=== PATIENT | female | born 1950 | race Caucasian/White ===

== ENCOUNTER 2018-08-26 14:49 | Inpatient (IN) | payer MEDICARE, OTHER ==
[~2018-08-26] VITALS: Ht 172.7 cm; Wt 132.6 kg
--- NOTE | 2018-08-26 15:08 | NUR ---
PT ARRIVES TO ED WITH GENERALIZED WEAKNESS, PT HAD A WINESSED FALL. PT REPORTS SHE IS STRUGGLING TO PERFORM ADLS AT HOME. EMS WAS CALLED AND PT WAS TRANSPORTED TO OUR FACILITY. PT ON ARRIVAL IS VERY TIRED AND FEELS LIKE SHE IS SICK. PT HAS MODERATE CELLULITIS TO BOTH LEGS AND MILD SWELLING. PT CONNECTED TO ALL MONITORS AND CALL LIGHT IN REACH.
--- NOTE | 2018-08-26 15:09 | NUR ---
Recieved report from AMOS Rooney.
[2018-08-26] MEDS ORDERED: SODIUM CHLORIDE FLUSH 10ML SYR IVF ONE (15:30)
[2018-08-26 16:00] LABS: BASOPHILS # (AUTO) 0.02 x10^3/uL (0-0.1); BASOPHILS % (AUTO) 0 % (0-1); EOSINOPHILS # (AUTO) 0.28 x10^3/uL (0-0.4); EOSINOPHILS % (AUTO) 4 % (1-7); LYMPHOCYTES # (AUTO) 0.67 x10^3/uL (1-3.4); LYMPHOCYTES % (AUTO) 9 % (22-44); MD NO; MEAN CORPUSCULAR HEMOGLOBIN 29.3 pg (27.0-34.8); MEAN CORPUSCULAR HGB CONC 31.2 g/dL (32.4-35.8); MONOCYTES # (AUTO) 1.31 x10^3/uL (0.2-0.8); MONOCYTES % (AUTO) 18 % (2-9); NEUTROPHILS # (AUTO) 5.03 x10^3/uL (1.8-6.8); NEUTROPHILS % (AUTO) 69 % (42-75); PLATELET COUNT 206 x10^3/uL (130-400); RED BLOOD COUNT 3.78 x10^6/uL (3.82-5.3); RED CELL DISTRIBUTION WIDTH 18.1 % (9.6-15.2)
[2018-08-26 16:05] LABS: INTERNATIONAL NORMALIZED RATIO 1.19 (0.93-1.1); PROTHROMBIN TIME 12.5 Seconds (9.6-11.5)
[2018-08-26 16:09] LABS: ALANINE AMINOTRANSFERASE 18 U/L (12-78); ALBUMIN 3.2 g/dL (3.4-5.0); ANION GAP 9 mmol/L (5-15); CHLORIDE 108 mmol/L (98-107)
[2018-08-26 16:20] LABS: ALKALINE PHOSPHATASE 222 U/L (45-117)
[2018-08-26] MEDS ORDERED: SODIUM CHLORIDE 0.9% 1,000 ML IV SCH (16:57)
[2018-08-26] MEDS ORDERED: VANCOMYCIN PER PHARMACY MC PRN (17:00)
[2018-08-26] MEDS ORDERED: ONDANSETRON 2MG/ML, 2ML IVPush PRN (17:00)
[2018-08-26] MEDS ORDERED: PLEASE ENTER ALLERGIES MC SCH (17:00)
[2018-08-26] MEDS ORDERED: ONDANSETRON ODT 4 MG PO PRN (17:00)
[2018-08-26] MEDS ORDERED: BACLOFEN 10 MG TABLET PO PRN (17:00)
[2018-08-26] MEDS ORDERED: PHARMACY MAY ADJ FOR RENAL FX MC PRN (17:00)
[2018-08-26] MEDS ORDERED: AMPICILLIN/SULBACTAM 3 GM in SODIUM CHLORIDE 0.9% 100 ML IV ONE (17:00)
--- NOTE | 2018-08-26 17:10 | NUR ---
Pt transported to [facility] on [facility]. Pt has PIV medication infusing per [facility].
[2018-08-26] MEDS: INSULIN LISPRO 100 UNITS/ML, PEN SQ-INSULIN SCH ×2 (17:30→21:00)
--- NOTE | 2018-08-26 17:33 | NUR ---
Provided report to AMOS Anaya. All questions answered. Pt to transfer to 491-1 from ED.
--- NOTE | 2018-08-26 17:55 | NUR ---
Unable to obtain home meds due to pt's acute medical process. Pt unable to provide information at this time.
[2018-08-26 18:12] LABS: HEMOGLOBIN A1C 7.6 % (4.2-6.3)
[2018-08-26 18:25] LABS: MICROSCOPIC INDICATED
[2018-08-26] MEDS ORDERED: PHARMACOKINETIC CONSULTATION MC ONE (18:30)
[2018-08-26] MEDS ORDERED: PHARMACOKINETIC MONITORING MC PRN (18:30)
[2018-08-26 18:33] LABS: CULTURE INDICATED? NO
[2018-08-26 18:33] LABS: AMPHETAMINE SCREEN, URINE Negative (Negative); BARBITURATE SCREEN, URINE Negative (Negative); BENZODIAZEPINE SCREEN, URINE Negative (Negative); CANNABINOID SCREEN, URINE Negative (Negative); COCAINE SCREEN, URINE Negative (Negative); METHADONE SCREEN, URINE Negative (Negative); OPIATE SCREEN, URINE Negative (Negative)
[2018-08-26 20:00] VITALS: BP 126/73
[2018-08-26] MEDS: VANCOMYCIN 2,000 MG in SODIUM CHLORIDE 0.9% 500 ML IV SCH (21:28)
[2018-08-26] MEDS: ENOXAPARIN 40 MG/0.4 ML SQ SCH (21:29)
[2018-08-26] MEDS: AMPICILLIN/SULBACTAM 3 GM in SODIUM CHLORIDE 0.9% 100 ML IV SCH (23:40)
[2018-08-27 02:00] VITALS: BP 108/70
[2018-08-27] MEDS: AMPICILLIN/SULBACTAM 3 GM in SODIUM CHLORIDE 0.9% 100 ML IV SCH ×4 (05:54→23:23)
[2018-08-27 06:00] LABS: MEAN CORPUSCULAR HEMOGLOBIN 30.4 pg (27.0-34.8); MEAN CORPUSCULAR HGB CONC 32.2 g/dL (32.4-35.8); MEAN CORPUSCULAR VOLUME 94.4 fL (80-100); PLATELET COUNT 204 x10^3/uL (130-400); RED BLOOD COUNT 3.65 x10^6/uL (3.82-5.3); RED CELL DISTRIBUTION WIDTH 19.1 % (9.6-15.2)
[2018-08-27 06:06] LABS: ALANINE AMINOTRANSFERASE 18 U/L (12-78); ALBUMIN 3.1 g/dL (3.4-5.0); ANION GAP 6 mmol/L (5-15); CALCIUM 8.8 mg/dL (8.5-10.1); CHLORIDE 110 mmol/L (98-107); CHOLESTEROL, TOTAL 109 mg/dL (140-239); CREATININE 1.52 mg/dL (0.55-1.02)
[2018-08-27 06:08] LABS: ALKALINE PHOSPHATASE 211 U/L (45-117); BILIRUBIN,TOTAL 0.7 mg/dL (0.2-1.0); CHOL/HDL RATIO 3.1; HDL CHOL % 32 % (28-40); HDL CHOLESTEROL (DIRECT) 35 mg/dL (40-60); LDL CHOLESTEROL,CALCULATED 60 mg/dL (54-169); LDL/HDL RATIO 1.7 (0.5-3.0); TOTAL PROTEIN 7.1 g/dL (6.4-8.2); TRIGLYCERIDES 68 mg/dL (50-200); VLDL CHOLESTEROL 14 mg/dL (0-25)
[2018-08-27 06:21] LABS: MD YES
[2018-08-27 06:23] LABS: BAND#(MANUAL) 0.07 x10^3/uL; BANDS%(MANUAL) 1 % (0-7); EOS#(MANUAL) 0.29 x10^3/uL (0.0-0.4); EOS% (MANUAL) 4 % (1-7); LYMPHS% (MANUAL) 11 % (22-44); MONOS#(MANUAL) 1.53 x10^3/uL (0.3-2.7); MONOS% (MANUAL) 21 % (2-9); SEGS% (MANUAL) 63 % (42-75)
[2018-08-27 06:24] LABS: <PLATELET ESTIMATE> ADEQUATE; <PLT MORPHOLOGY> NORMAL PLT MORPH; <RBC MORPHOLOGY> NORMAL
[2018-08-27] MEDS: INSULIN LISPRO 100 UNITS/ML, PEN SQ-INSULIN SCH ×4 (07:00→20:37)
[2018-08-27 07:04] VITALS: BP 113/67
[2018-08-27] MEDS ORDERED: FURO40TA6 PO (08:51)
[2018-08-27] MEDS ORDERED: PANT40TA5 PO (08:51)
[2018-08-27] MEDS ORDERED: POTA20TA91 PO (08:51)
[2018-08-27] MEDS ORDERED: INSU100I18 SQ-INSULIN (08:51)
[2018-08-27] MEDS ORDERED: INSU100I13 SQ-INSULIN (08:51)
[2018-08-27] MEDS ORDERED: METO-290 PO (08:51)
[2018-08-27] MEDS ORDERED: ALLO100T30 PO (08:51)
[2018-08-27] MEDS ORDERED: HYDR10TA4 PO (08:51)
[2018-08-27] MEDS ORDERED: ALBU0.63 NEB (08:51)
[2018-08-27] MEDS ORDERED: BUDE10.2 HHN (08:51)
[2018-08-27] MEDS ORDERED: DULO60CA55 PO (08:51)
[2018-08-27] MEDS ORDERED: ATOR-2 PO (08:51)
[2018-08-27] MEDS ORDERED: FUROSEMIDE 40 MG/4 ML IV ONE (12:00)
[2018-08-27 12:10] VITALS: BP 95/61
[2018-08-27 15:22] LABS: CALCIUM 8.4 mg/dL (8.5-10.1); CHLORIDE 108 mmol/L (98-107)
[2018-08-27 15:24] LABS: ANION GAP 7 mmol/L (5-15); CREATININE 1.65 mg/dL (0.55-1.02)
[2018-08-27] MEDS: FUROSEMIDE 40 MG/4 ML IV SCH (17:23)
[2018-08-27 20:00] VITALS: BP 143/71
[2018-08-27] MEDS: ENOXAPARIN 40 MG/0.4 ML SQ SCH (20:37)
[2018-08-27] MEDS: ATORVASTATIN 80 MG TABLET PO SCH (20:37)
[2018-08-27] MEDS: DULOXETINE 30 MG CAPSULE.DR PO SCH (20:38)
[2018-08-27] MEDS: BUDESONIDE 0.5 MG/2 ML INHA HHN SCH (20:55)
[2018-08-27] MEDS: ALBUTEROL SULFATE 2.5 MG/3 ML HHN SCH (20:55)
[2018-08-28 01:29] VITALS: BP 126/63
[2018-08-28] MEDS: ALBUTEROL SULFATE 2.5 MG/3 ML HHN SCH ×4 (02:40→19:40)
[2018-08-28 05:12] LABS: BASOPHILS # (AUTO) 0.04 x10^3/uL (0-0.1); BASOPHILS % (AUTO) 1 % (0-1); EOSINOPHILS # (AUTO) 0.27 x10^3/uL (0-0.4); EOSINOPHILS % (AUTO) 4 % (1-7); LYMPHOCYTES # (AUTO) 0.87 x10^3/uL (1-3.4); LYMPHOCYTES % (AUTO) 12 % (22-44); MD NO; MEAN CORPUSCULAR HEMOGLOBIN 29.9 pg (27.0-34.8); MEAN CORPUSCULAR HGB CONC 31.4 g/dL (32.4-35.8); MEAN CORPUSCULAR VOLUME 95.3 fL (80-100); MEAN PLATELET VOLUME 8.2 fL (7.4-10.4); MONOCYTES # (AUTO) 1.41 x10^3/uL (0.2-0.8); MONOCYTES % (AUTO) 19 % (2-9); NEUTROPHILS # (AUTO) 4.85 x10^3/uL (1.8-6.8); NEUTROPHILS % (AUTO) 65 % (42-75); PLATELET COUNT 191 x10^3/uL (130-400); RED BLOOD COUNT 3.71 x10^6/uL (3.82-5.3); RED CELL DISTRIBUTION WIDTH 18.5 % (9.6-15.2)
[2018-08-28 05:26] LABS: ANION GAP 5 mmol/L (5-15); CALCIUM 8.6 mg/dL (8.5-10.1); CHLORIDE 109 mmol/L (98-107)
[2018-08-28] MEDS: AMPICILLIN/SULBACTAM 3 GM in SODIUM CHLORIDE 0.9% 100 ML IV SCH ×4 (05:30→23:46)
[2018-08-28 07:23] VITALS: BP 129/68
[2018-08-28] MEDS: BUDESONIDE 0.5 MG/2 ML INHA HHN SCH ×2 (07:45→18:00)
[2018-08-28] MEDS: INSULIN LISPRO 100 UNITS/ML, PEN SQ-INSULIN SCH ×4 (08:20→21:30)
[2018-08-28] MEDS: DULOXETINE 30 MG CAPSULE.DR PO SCH ×2 (08:41→21:30)
[2018-08-28] MEDS: FUROSEMIDE 40 MG/4 ML IV SCH ×3 (08:41→23:44)
[2018-08-28] MEDS: PANTOPRAZOLE 40 MG IV IV SCH (08:41)
[2018-08-28] MEDS: METOPROLOL SUCCINATE 100 MG TAB.ER.24H PO SCH (08:41)
[2018-08-28] MEDS: VANCOMYCIN 2,000 MG in SODIUM CHLORIDE 0.9% 500 ML IV SCH (10:15)
[2018-08-28] MEDS: ALBUMIN HUMAN 25% 50 ML IV SCH ×3 (13:13→23:08)
[2018-08-28] MEDS ORDERED: PHARMACY MAY ADJ FOR RENAL FX MC PRN (14:30)
[2018-08-28 16:15] VITALS: BP 126/72
[2018-08-28] MEDS: METOLAZONE 5 MG TABLET PO SCH (16:27)
[2018-08-28 20:00] VITALS: BP 147/81
[2018-08-28] MEDS: ATORVASTATIN 80 MG TABLET PO SCH (21:30)
[2018-08-28] MEDS: ENOXAPARIN 40 MG/0.4 ML SQ SCH (21:30)
[2018-08-29 01:55] VITALS: BP 143/79
[2018-08-29] MEDS: ALBUTEROL SULFATE 2.5 MG/3 ML HHN SCH ×2 (02:00→08:00)
[2018-08-29] MEDS: AMPICILLIN/SULBACTAM 3 GM in SODIUM CHLORIDE 0.9% 100 ML IV SCH ×2 (05:39→11:54)
[2018-08-29] MEDS: BUDESONIDE 0.5 MG/2 ML INHA HHN SCH (06:00)
[2018-08-29 06:06] LABS: ALBUMIN 3.4 g/dL (3.4-5.0); ANION GAP 7 mmol/L (5-15); CALCIUM 8.9 mg/dL (8.5-10.1); CHLORIDE 110 mmol/L (98-107)
[2018-08-29 06:11] LABS: ALANINE AMINOTRANSFERASE 17 U/L (12-78); ALKALINE PHOSPHATASE 206 U/L (45-117); BILIRUBIN,TOTAL 1.1 mg/dL (0.2-1.0); CREATININE 1.73 mg/dL (0.55-1.02); TOTAL PROTEIN 7.1 g/dL (6.4-8.2)
[2018-08-29 06:20] LABS: MEAN CORPUSCULAR HEMOGLOBIN 30.7 pg (27.0-34.8); MEAN CORPUSCULAR HGB CONC 32.6 g/dL (32.4-35.8); MEAN CORPUSCULAR VOLUME 94.2 fL (80-100); PLATELET COUNT 195 x10^3/uL (130-400); RED BLOOD COUNT 3.44 x10^6/uL (3.82-5.3); RED CELL DISTRIBUTION WIDTH 18.6 % (9.6-15.2)
[2018-08-29 06:34] LABS: MD YES
[2018-08-29 06:36] LABS: BAND#(MANUAL) 0.07 x10^3/uL; BANDS%(MANUAL) 1 % (0-7); BASOS#(MANUAL) 0.07 x10^3/uL (0-0.1); BASOS% (MANUAL) 1 % (0-1); EOS#(MANUAL) 0.28 x10^3/uL (0.0-0.4); EOS% (MANUAL) 4 % (1-7); LYMPH#(MANUAL) 0.97 x10^3/uL (1-3.4); LYMPHS% (MANUAL) 14 % (22-44); MONOS#(MANUAL) 1.59 x10^3/uL (0.3-2.7); MONOS% (MANUAL) 23 % (2-9); SEG#(MANUAL) 3.93 x10^3/uL (1.8-6.8); SEGS% (MANUAL) 57 % (42-75)
[2018-08-29 06:38] LABS: <PLATELET ESTIMATE> ADEQUATE; <PLT MORPHOLOGY> NORMAL PLT MORPH; ANISOCYTOSIS 1+; OVALOCYTES 1+; POLYCHROMASIA 1+
[2018-08-29 06:39] LABS: ECHINOCYTES 1+
[2018-08-29] MEDS ORDERED: MIDAZOLAM 1 MG/ML, 2ML ONE (07:20)
[2018-08-29] MEDS ORDERED: FENTANYL PF 250 MCG/5ML ONE (07:20)
[2018-08-29] MEDS: INSULIN LISPRO 100 UNITS/ML, PEN SQ-INSULIN SCH ×4 (07:42→20:48)
[2018-08-29 08:02] VITALS: BP 140/83
[2018-08-29] MEDS: METOPROLOL SUCCINATE 100 MG TAB.ER.24H PO SCH (08:53)
[2018-08-29] MEDS: DULOXETINE 30 MG CAPSULE.DR PO SCH ×2 (08:53→20:48)
[2018-08-29] MEDS: METOLAZONE 5 MG TABLET PO SCH (08:53)
[2018-08-29] MEDS: ALBUMIN HUMAN 25% 50 ML IV SCH ×3 (08:53→20:47)
[2018-08-29] MEDS: PANTOPRAZOLE 40 MG IV IV SCH (08:53)
[2018-08-29] MEDS ORDERED: ALBUTEROL SULFATE 2.5 MG/3 ML HHN PRN (13:00)
[2018-08-29 13:24] VITALS: BP 143/79
[2018-08-29 16:47] VITALS: BP 146/79
[2018-08-29 20:00] VITALS: BP 119/70
[2018-08-29] MEDS: ATORVASTATIN 80 MG TABLET PO SCH (20:48)
[2018-08-29] MEDS: ENOXAPARIN 40 MG/0.4 ML SQ SCH (20:48)
[2018-08-29] MEDS: DOXYCYCLINE 100MG TABLET PO SCH (20:48)
[2018-08-29] MEDS: AMOXICILLIN/CLAV 875-125MG TABLET PO SCH (20:48)
[2018-08-30 02:00] VITALS: BP 143/52
[2018-08-30 04:58] LABS: ALANINE AMINOTRANSFERASE 18 U/L (12-78); ALBUMIN 3.3 g/dL (3.4-5.0); ANION GAP 6 mmol/L (5-15); CALCIUM 8.5 mg/dL (8.5-10.1); CHLORIDE 109 mmol/L (98-107); CREATININE 1.83 mg/dL (0.55-1.02)
[2018-08-30 05:01] LABS: ALKALINE PHOSPHATASE 201 U/L (45-117); BILIRUBIN,TOTAL 0.9 mg/dL (0.2-1.0); TOTAL PROTEIN 6.7 g/dL (6.4-8.2)
[2018-08-30] MEDS: ACETAMINOPHEN 325 MG TABLET PO PRN (06:17)
[2018-08-30 07:45] VITALS: BP 132/63
[2018-08-30] MEDS: INSULIN LISPRO 100 UNITS/ML, PEN SQ-INSULIN SCH ×4 (07:57→20:57)
[2018-08-30] MEDS: HEPARIN 5,000 UNITS/ML, 1ML SQ SCH ×2 (08:36→16:40)
[2018-08-30] MEDS: AMOXICILLIN/CLAV 875-125MG TABLET PO SCH ×2 (08:36→20:57)
[2018-08-30] MEDS: DOXYCYCLINE 100MG TABLET PO SCH ×2 (08:36→20:57)
[2018-08-30] MEDS: DULOXETINE 30 MG CAPSULE.DR PO SCH (08:37)
[2018-08-30] MEDS: METOLAZONE 5 MG TABLET PO SCH (08:37)
[2018-08-30] MEDS: METOPROLOL SUCCINATE 100 MG TAB.ER.24H PO SCH (08:37)
[2018-08-30] MEDS ORDERED: FUROSEMIDE 40 MG/4 ML IV SCH (09:00)
[2018-08-30] MEDS: ALBUMIN HUMAN 25% 50 ML IV SCH ×3 (09:36→20:56)
[2018-08-30 10:23] LABS: O2 FLOW 3 L/min
[2018-08-30 12:53] VITALS: BP 143/75
[2018-08-30] MEDS: methylPREDNISolone SOD SUCC 40 MG/ML IV SCH (18:46)
[2018-08-30 20:52] VITALS: BP 150/70
[2018-08-30] MEDS: ATORVASTATIN 80 MG TABLET PO SCH (20:57)
[2018-08-31] MEDS: methylPREDNISolone SOD SUCC 40 MG/ML IV SCH ×4 (00:45→17:39)
[2018-08-31] MEDS: HEPARIN 5,000 UNITS/ML, 1ML SQ SCH ×3 (00:45→17:40)
[2018-08-31 01:42] VITALS: BP 163/76
[2018-08-31 06:54] LABS: ALBUMIN 3.7 g/dL (3.4-5.0); ANION GAP 9 mmol/L (5-15); CALCIUM 9.1 mg/dL (8.5-10.1); CHLORIDE 109 mmol/L (98-107)
[2018-08-31 06:58] LABS: ALANINE AMINOTRANSFERASE 18 U/L (12-78); ALKALINE PHOSPHATASE 230 U/L (45-117); BILIRUBIN,TOTAL 0.8 mg/dL (0.2-1.0); CREATININE 1.66 mg/dL (0.55-1.02); TOTAL PROTEIN 7.4 g/dL (6.4-8.2)
[2018-08-31 07:51] VITALS: BP 173/86
[2018-08-31] MEDS: INSULIN LISPRO 100 UNITS/ML, PEN SQ-INSULIN SCH ×4 (07:54→21:40)
[2018-08-31] MEDS: METOLAZONE 5 MG TABLET PO SCH (07:55)
[2018-08-31] MEDS: AMOXICILLIN/CLAV 875-125MG TABLET PO SCH (07:55)
[2018-08-31] MEDS: DULOXETINE 30 MG CAPSULE.DR PO SCH (07:55)
[2018-08-31] MEDS: DOXYCYCLINE 100MG TABLET PO SCH (07:55)
[2018-08-31] MEDS: METOPROLOL SUCCINATE 100 MG TAB.ER.24H PO SCH (07:56)
[2018-08-31] MEDS ORDERED: MIDAZOLAM 1 MG/ML, 5ML ONE (08:57)
[2018-08-31] MEDS ORDERED: ROCURONIUM 10MG/ML,5ML ONE (08:57)
[2018-08-31] MEDS: ALBUMIN HUMAN 25% 50 ML IV SCH ×3 (09:33→22:54)
[2018-08-31] MEDS: ACETAMINOPHEN 325 MG TABLET PO PRN (12:21)
[2018-08-31] MEDS: FUROSEMIDE 40 MG/4 ML IV SCH (13:55)
[2018-08-31] MEDS ORDERED: HALOPERIDOL 5 MG/ML ONE (14:12)
[2018-08-31] MEDS ORDERED: HALOPERIDOL 5 MG/ML IV ONE (14:30)
[2018-08-31] MEDS ORDERED: AMPICILLIN/SULBACTAM 1,500 MG in SODIUM CHLORIDE 0.9% 50 ML IV SCH (14:30)
[2018-08-31 14:41] LABS: MEAN CORPUSCULAR HEMOGLOBIN 30.1 pg (27.0-34.8); MEAN CORPUSCULAR HGB CONC 31.9 g/dL (32.4-35.8); MEAN CORPUSCULAR VOLUME 94.5 fL (80-100); MEAN PLATELET VOLUME 8.8 fL (7.4-10.4); PLATELET COUNT 185 x10^3/uL (130-400); RED BLOOD COUNT 3.92 x10^6/uL (3.82-5.3); RED CELL DISTRIBUTION WIDTH 18.3 % (9.6-15.2)
[2018-08-31 14:44] LABS: ALANINE AMINOTRANSFERASE 21 U/L (12-78); ALBUMIN 3.9 g/dL (3.4-5.0); ANION GAP 13 mmol/L (5-15); CHLORIDE 107 mmol/L (98-107); CREATININE 1.97 mg/dL (0.55-1.02)
[2018-08-31 14:48] LABS: ALKALINE PHOSPHATASE 210 U/L (45-117); TOTAL PROTEIN 7.9 g/dL (6.4-8.2); TROPONIN I < 0.015 ng/mL (0.000-0.045)
[2018-08-31] MEDS ORDERED: PROPOFOL 100 ML IV ONE (14:56)
[2018-08-31 15:00] LABS: MD YES
[2018-08-31 15:09] LABS: <PLATELET ESTIMATE> ADEQUATE; <PLT MORPHOLOGY> NORMAL PLT MORPH; ANISOCYTOSIS 1+; BAND#(MANUAL) 0.07 x10^3/uL; BANDS%(MANUAL) 1 % (0-7); LYMPH#(MANUAL) 0.99 x10^3/uL (1-3.4); LYMPHS% (MANUAL) 15 % (22-44); MONOS% (MANUAL) 3 % (2-9); OVALOCYTES 1+; POLYCHROMASIA 1+; SEG#(MANUAL) 5.35 x10^3/uL (1.8-6.8); SEGS% (MANUAL) 81 % (42-75)
[2018-08-31] MEDS ORDERED: ROCURONIUM 10 MG/ML,10ML IVPush ONE (15:10)
[2018-08-31] MEDS ORDERED: MIDAZOLAM 1 MG/ML, 5ML IVPush ONE (15:10)
[2018-08-31] MEDS: PROPOFOL 100 ML IV PRN ×3 (15:20→22:20)
[2018-08-31] MEDS ORDERED: DEXTROSE 50%, 50ML SYRINGE IVPush PRN (15:30)
[2018-08-31] MEDS ORDERED: PHARMACY MAY ADJ FOR RENAL FX MC SCH (15:30)
[2018-08-31] MEDS ORDERED: LIDOCAINE-MPF 1%, 2ML ENDO PRN (15:30)
[2018-08-31] MEDS ORDERED: DEXTROSE 4 GM TAB.CHEW PO PRN (15:30)
[2018-08-31] MEDS: ALBUTEROL/IPRATROPIUM 2.5MG/0.5MG, 3 ML INLINE SCH ×3 (15:30→22:27)
[2018-08-31] MEDS ORDERED: GLUCAGON 1 MG IM PRN (15:30)
[2018-08-31] MEDS ORDERED: SENNA/DOCUSATE TABLET NG PRN (15:30)
[2018-08-31] MEDS ORDERED: SENNOSIDES 8.8 MG/5 ML ORAL SOL NG PRN (15:30)
[2018-08-31] MEDS ORDERED: LACTULOSE 20 GM/30 ML UDC NG PRN (15:30)
[2018-08-31] MEDS ORDERED: BISACODYL 10 MG SUPP PR PRN (15:30)
[2018-08-31] MEDS ORDERED: INSULIN LISPRO 100 UNITS/ML, PEN SQ-INSULIN SCH (16:00)
[2018-08-31 16:01] LABS: TRIGLYCERIDES 75 mg/dL (50-200)
[2018-08-31] MEDS: AMPICILLIN/SULBACTAM 1,500 MG in SODIUM CHLORIDE 0.9% 50 ML IV SCH (17:41)
[2018-08-31 21:11] LABS: TROPONIN I 0.038 ng/mL (0.000-0.045)
[2018-08-31] MEDS: ATORVASTATIN 80 MG TABLET NG SCH (21:39)
[2018-08-31] MEDS: DOXYCYCLINE 100 MG in DEXTROSE 5% 250 ML IV SCH (21:40)
[2018-08-31] MEDS: SODIUM CHLORIDE FLUSH 10ML SYR IVF SCH (21:40)
[2018-09-01] MEDS: methylPREDNISolone SOD SUCC 40 MG/ML IV SCH ×4 (00:11→19:00)
[2018-09-01] MEDS: HEPARIN 5,000 UNITS/ML, 1ML SQ SCH ×3 (00:11→16:28)
[2018-09-01] MEDS: FENTANYL PF 100 MCG/2ML IVPush PRN ×4 (00:46→20:11)
[2018-09-01] MEDS: PROPOFOL 100 ML IV PRN ×6 (01:34→23:13)
[2018-09-01] MEDS: ALBUTEROL/IPRATROPIUM 2.5MG/0.5MG, 3 ML INLINE SCH ×6 (01:48→22:22)
[2018-09-01] MEDS: INSULIN LISPRO 100 UNITS/ML, PEN SQ-INSULIN SCH ×4 (03:08→21:04)
[2018-09-01 03:48] LABS: BASOPHILS % (AUTO) 0 % (0-1); EOSINOPHILS % (AUTO) 0 % (1-7); LYMPHOCYTES # (AUTO) 0.51 x10^3/uL (1-3.4); LYMPHOCYTES % (AUTO) 8 % (22-44); MD NO; MEAN CORPUSCULAR HEMOGLOBIN 30.3 pg (27.0-34.8); MEAN CORPUSCULAR HGB CONC 32.7 g/dL (32.4-35.8); MEAN CORPUSCULAR VOLUME 92.5 fL (80-100); MEAN PLATELET VOLUME 9.1 fL (7.4-10.4); MONOCYTES # (AUTO) 0.61 x10^3/uL (0.2-0.8); MONOCYTES % (AUTO) 9 % (2-9); NEUTROPHILS # (AUTO) 5.57 x10^3/uL (1.8-6.8); NEUTROPHILS % (AUTO) 83 % (42-75); PLATELET COUNT 154 x10^3/uL (130-400); RED BLOOD COUNT 3.44 x10^6/uL (3.82-5.3)
[2018-09-01 03:52] LABS: ALBUMIN 3.8 g/dL (3.4-5.0); ANION GAP 10 mmol/L (5-15); CALCIUM 8.8 mg/dL (8.5-10.1); CHLORIDE 108 mmol/L (98-107)
[2018-09-01 03:55] LABS: ALANINE AMINOTRANSFERASE 18 U/L (12-78); ALKALINE PHOSPHATASE 177 U/L (45-117); BILIRUBIN,TOTAL 0.7 mg/dL (0.2-1.0); CREATININE 1.89 mg/dL (0.55-1.02); TOTAL PROTEIN 6.9 g/dL (6.4-8.2)
[2018-09-01] MEDS: AMPICILLIN/SULBACTAM 1,500 MG in SODIUM CHLORIDE 0.9% 50 ML IV SCH ×3 (04:17→22:30)
[2018-09-01 07:00] VITALS: BP 102/42
[2018-09-01] MEDS: ALBUMIN HUMAN 25% 50 ML IV SCH (08:09)
[2018-09-01] MEDS: SODIUM CHLORIDE FLUSH 10ML SYR IVF SCH ×2 (09:00→21:05)
[2018-09-01] MEDS: PANTOPRAZOLE 40 MG IV IV SCH (09:53)
[2018-09-01] MEDS: DULOXETINE 30 MG CAPSULE.DR PO SCH (09:53)
[2018-09-01] MEDS: FUROSEMIDE 40 MG/4 ML IV SCH (09:53)
[2018-09-01] MEDS: METOLAZONE 5 MG TABLET PO SCH (09:53)
[2018-09-01] MEDS: DOXYCYCLINE 100 MG in DEXTROSE 5% 250 ML IV SCH ×2 (09:53→21:04)
[2018-09-01] MEDS: INSULIN GLARGINE 100 UNITS/ML, PEN SQ-INSULIN SCH (12:38)
[2018-09-01] MEDS: METOPROLOL 1 MG/ML, 5ML IVPush PRN ×2 (21:04→21:27)
[2018-09-01] MEDS: ATORVASTATIN 80 MG TABLET NG SCH (21:04)
[2018-09-02] MEDS: methylPREDNISolone SOD SUCC 40 MG/ML IV SCH ×4 (00:05→18:04)
[2018-09-02] MEDS: HEPARIN 5,000 UNITS/ML, 1ML SQ SCH ×3 (00:05→15:43)
[2018-09-02] MEDS: FENTANYL PF 100 MCG/2ML IVPush PRN ×3 (01:05→17:17)
[2018-09-02] MEDS: ALBUTEROL/IPRATROPIUM 2.5MG/0.5MG, 3 ML INLINE SCH ×6 (01:49→21:54)
[2018-09-02] MEDS: PROPOFOL 100 ML IV PRN ×5 (03:19→21:28)
[2018-09-02] MEDS: INSULIN LISPRO 100 UNITS/ML, PEN SQ-INSULIN SCH ×4 (03:21→21:27)
[2018-09-02] MEDS: AMPICILLIN/SULBACTAM 1,500 MG in SODIUM CHLORIDE 0.9% 50 ML IV SCH (03:21)
[2018-09-02 04:00] VITALS: BP 133/51
[2018-09-02 04:38] LABS: BASOPHILS % (AUTO) 0 % (0-1); EOSINOPHILS % (AUTO) 0 % (1-7); LYMPHOCYTES # (AUTO) 0.41 x10^3/uL (1-3.4); LYMPHOCYTES % (AUTO) 6 % (22-44); MD NO; MEAN CORPUSCULAR HEMOGLOBIN 29.7 pg (27.0-34.8); MEAN CORPUSCULAR HGB CONC 31.9 g/dL (32.4-35.8); MEAN CORPUSCULAR VOLUME 93.3 fL (80-100); MEAN PLATELET VOLUME 9.4 fL (7.4-10.4); MONOCYTES # (AUTO) 0.41 x10^3/uL (0.2-0.8); MONOCYTES % (AUTO) 6 % (2-9); NEUTROPHILS # (AUTO) 6.34 x10^3/uL (1.8-6.8); NEUTROPHILS % (AUTO) 89 % (42-75); PLATELET COUNT 173 x10^3/uL (130-400); RED BLOOD COUNT 3.44 x10^6/uL (3.82-5.3); RED CELL DISTRIBUTION WIDTH 18.6 % (9.6-15.2)
[2018-09-02 04:45] LABS: ANION GAP 8 mmol/L (5-15); CHLORIDE 107 mmol/L (98-107); CREATININE 2.27 mg/dL (0.55-1.02)
[2018-09-02] MEDS ORDERED: FUROSEMIDE 40 MG/4 ML IV ONE (05:00)
[2018-09-02] MEDS: PIPERACILLIN/TAZO 2.25 GM in SODIUM CHLORIDE 0.9% 50 ML IV SCH ×3 (09:00→20:16)
[2018-09-02] MEDS: PANTOPRAZOLE 40 MG IV IV SCH (09:34)
[2018-09-02] MEDS: DULOXETINE 30 MG CAPSULE.DR PO SCH (09:35)
[2018-09-02] MEDS: SODIUM CHLORIDE FLUSH 10ML SYR IVF SCH ×2 (09:35→21:27)
[2018-09-02] MEDS: QUETIAPINE 25MG TABLET PO SCH ×2 (09:36→17:17)
[2018-09-02] MEDS: INSULIN GLARGINE 100 UNITS/ML, PEN SQ-INSULIN SCH (09:44)
[2018-09-02] MEDS: METOPROLOL 1 MG/ML, 5ML IVPush PRN (13:54)
[2018-09-02] MEDS: FUROSEMIDE 40 MG/4 ML IV SCH ×2 (15:42→21:27)
[2018-09-02] MEDS: ATORVASTATIN 80 MG TABLET NG SCH (21:27)
[2018-09-03] MEDS: QUETIAPINE 25MG TABLET PO SCH ×3 (00:35→17:02)
[2018-09-03] MEDS: methylPREDNISolone SOD SUCC 40 MG/ML IV SCH ×4 (00:35→21:33)
[2018-09-03] MEDS: HEPARIN 5,000 UNITS/ML, 1ML SQ SCH ×2 (00:35→08:14)
[2018-09-03] MEDS: PROPOFOL 100 ML IV PRN ×6 (00:45→22:34)
[2018-09-03] MEDS: FENTANYL PF 100 MCG/2ML IVPush PRN (00:59)
[2018-09-03] MEDS: PIPERACILLIN/TAZO 2.25 GM in SODIUM CHLORIDE 0.9% 50 ML IV SCH ×4 (01:52→20:04)
[2018-09-03] MEDS: ALBUTEROL/IPRATROPIUM 2.5MG/0.5MG, 3 ML INLINE SCH ×6 (02:22→23:00)
[2018-09-03] MEDS: METOPROLOL 1 MG/ML, 5ML IVPush PRN (03:02)
[2018-09-03] MEDS: INSULIN LISPRO 100 UNITS/ML, PEN SQ-INSULIN SCH ×4 (03:02→21:25)
[2018-09-03 04:00] VITALS: BP 127/58
[2018-09-03 04:31] LABS: BASOPHILS # (AUTO) 0.02 x10^3/uL (0-0.1); BASOPHILS % (AUTO) 0 % (0-1); EOSINOPHILS % (AUTO) 0 % (1-7); LYMPHOCYTES # (AUTO) 0.39 x10^3/uL (1-3.4); LYMPHOCYTES % (AUTO) 7 % (22-44); MD NO; MEAN CORPUSCULAR HEMOGLOBIN 30.2 pg (27.0-34.8); MEAN CORPUSCULAR HGB CONC 32.6 g/dL (32.4-35.8); MEAN CORPUSCULAR VOLUME 92.7 fL (80-100); MEAN PLATELET VOLUME 9.5 fL (7.4-10.4); MONOCYTES # (AUTO) 0.46 x10^3/uL (0.2-0.8); MONOCYTES % (AUTO) 9 % (2-9); NEUTROPHILS # (AUTO) 4.43 x10^3/uL (1.8-6.8); NEUTROPHILS % (AUTO) 84 % (42-75); PLATELET COUNT 166 x10^3/uL (130-400); RED BLOOD COUNT 3.36 x10^6/uL (3.82-5.3); RED CELL DISTRIBUTION WIDTH 17.9 % (9.6-15.2)
[2018-09-03 04:34] LABS: ANION GAP 10 mmol/L (5-15); CALCIUM 8.7 mg/dL (8.5-10.1); CHLORIDE 107 mmol/L (98-107); CREATININE 2.37 mg/dL (0.55-1.02); TRIGLYCERIDES 122 mg/dL (50-200)
[2018-09-03] MEDS: FUROSEMIDE 40 MG/4 ML IV SCH ×3 (08:13→23:54)
[2018-09-03] MEDS: DULOXETINE 30 MG CAPSULE.DR PO SCH (08:13)
[2018-09-03] MEDS: PANTOPRAZOLE 40 MG IV IV SCH (08:13)
[2018-09-03] MEDS: SODIUM CHLORIDE FLUSH 10ML SYR IVF SCH ×2 (08:14→21:32)
[2018-09-03] MEDS ORDERED: INSULIN GLARGINE 100 UNITS/ML, PEN SQ-INSULIN SCH (09:00)
[2018-09-03] MEDS ORDERED: AMIODARONE 150 MG in DEXTROSE 5% 100 ML IVPB ONE (09:14)
[2018-09-03] MEDS ORDERED: FILTER 0.22 MICRON IV PRN (09:30)
[2018-09-03] MEDS ORDERED: HEPARIN 5,000 UNITS/ML, 1ML IV PRN (10:00)
[2018-09-03] MEDS: HEPARIN 25,000 UNITS/500ML PMX 500 ML IV PRN (10:22)
[2018-09-03] MEDS: AMIODARONE 900 MG in DEXTROSE 5% 482 ML IV PRN (10:59)
--- NOTE | 2018-09-03 11:28 | NUR ---
TF Recommendations: Vital High Protein ON propofol: 50 ml/hr OFF propofol: 65 ml/hr
[2018-09-03] MEDS: ATORVASTATIN 80 MG TABLET NG SCH (21:32)
[2018-09-04] MEDS: QUETIAPINE 25MG TABLET PO SCH ×2 (02:07→09:11)
[2018-09-04] MEDS: PIPERACILLIN/TAZO 2.25 GM in SODIUM CHLORIDE 0.9% 50 ML IV SCH ×4 (02:09→20:16)
[2018-09-04] MEDS: AMIODARONE 900 MG in DEXTROSE 5% 482 ML IV PRN (02:54)
[2018-09-04] MEDS: INSULIN LISPRO 100 UNITS/ML, PEN SQ-INSULIN SCH ×4 (03:01→21:36)
[2018-09-04] MEDS: ALBUTEROL/IPRATROPIUM 2.5MG/0.5MG, 3 ML INLINE SCH ×6 (03:30→22:59)
[2018-09-04] MEDS: PROPOFOL 100 ML IV PRN (04:10)
[2018-09-04 04:24] LABS: BASOPHILS % (AUTO) 0 % (0-1); EOSINOPHILS # (AUTO) 0.01 x10^3/uL (0-0.4); EOSINOPHILS % (AUTO) 0 % (1-7); LYMPHOCYTES # (AUTO) 0.43 x10^3/uL (1-3.4); LYMPHOCYTES % (AUTO) 8 % (22-44); MD NO; MEAN CORPUSCULAR HEMOGLOBIN 29.8 pg (27.0-34.8); MEAN CORPUSCULAR HGB CONC 32.5 g/dL (32.4-35.8); MEAN CORPUSCULAR VOLUME 91.7 fL (80-100); MEAN PLATELET VOLUME 9.8 fL (7.4-10.4); MONOCYTES % (AUTO) 13 % (2-9); NEUTROPHILS % (AUTO) 79 % (42-75); PLATELET COUNT 161 x10^3/uL (130-400); RED BLOOD COUNT 3.43 x10^6/uL (3.82-5.3); RED CELL DISTRIBUTION WIDTH 17.8 % (9.6-15.2)
[2018-09-04 04:51] LABS: ANION GAP 13 mmol/L (5-15); CALCIUM 8.2 mg/dL (8.5-10.1); CHLORIDE 105 mmol/L (98-107); CREATININE 2.54 mg/dL (0.55-1.02)
[2018-09-04] MEDS: methylPREDNISolone SOD SUCC 40 MG/ML IV SCH (06:43)
[2018-09-04] MEDS: DEXMEDETOMIDINE 1,000 MCG in SODIUM CHLORIDE 0.9% 240 ML IV PRN ×2 (08:52→21:44)
[2018-09-04] MEDS ORDERED: INSULIN GLARGINE 100 UNITS/ML, PEN SQ-INSULIN SCH (09:00)
[2018-09-04] MEDS: DULOXETINE 30 MG CAPSULE.DR PO SCH (09:10)
[2018-09-04] MEDS: PANTOPRAZOLE 40 MG IV IV SCH (09:11)
[2018-09-04] MEDS: FUROSEMIDE 40 MG/4 ML IV SCH ×3 (09:11→21:28)
[2018-09-04] MEDS: SODIUM CHLORIDE FLUSH 10ML SYR IVF SCH ×2 (09:11→21:29)
[2018-09-04] MEDS: HEPARIN 25,000 UNITS/500ML PMX 500 ML IV PRN (09:14)
[2018-09-04] MEDS: METOLAZONE 5 MG TABLET PO SCH (09:24)
[2018-09-04] MEDS: AMIODARONE 200 MG TABLET PO SCH ×2 (11:16→21:28)
[2018-09-04] MEDS ORDERED: HEPARIN 5,000 UNITS/ML, 1ML IV ONE (12:00)
[2018-09-04] MEDS ORDERED: HEPARIN 5,000 UNITS/ML, 1ML IV PRN (12:00)
[2018-09-04] MEDS: ATORVASTATIN 80 MG TABLET NG SCH (21:28)
[2018-09-05] MEDS: PIPERACILLIN/TAZO 2.25 GM in SODIUM CHLORIDE 0.9% 50 ML IV SCH ×4 (02:04→19:33)
[2018-09-05] MEDS: ALBUTEROL/IPRATROPIUM 2.5MG/0.5MG, 3 ML INLINE SCH ×6 (02:30→22:50)
[2018-09-05] MEDS: INSULIN LISPRO 100 UNITS/ML, PEN SQ-INSULIN SCH ×3 (03:14→15:09)
[2018-09-05 05:12] LABS: BASOPHILS # (AUTO) 0.02 x10^3/uL (0-0.1); BASOPHILS % (AUTO) 0 % (0-1); EOSINOPHILS # (AUTO) 0.02 x10^3/uL (0-0.4); EOSINOPHILS % (AUTO) 0 % (1-7); LYMPHOCYTES # (AUTO) 0.95 x10^3/uL (1-3.4); LYMPHOCYTES % (AUTO) 14 % (22-44); MD NO; MEAN CORPUSCULAR HEMOGLOBIN 29.9 pg (27.0-34.8); MEAN CORPUSCULAR HGB CONC 32.5 g/dL (32.4-35.8); MONOCYTES # (AUTO) 0.99 x10^3/uL (0.2-0.8); MONOCYTES % (AUTO) 15 % (2-9); NEUTROPHILS # (AUTO) 4.73 x10^3/uL (1.8-6.8); NEUTROPHILS % (AUTO) 71 % (42-75); PLATELET COUNT 148 x10^3/uL (130-400); RED BLOOD COUNT 3.67 x10^6/uL (3.82-5.3); RED CELL DISTRIBUTION WIDTH 17.7 % (9.6-15.2)
[2018-09-05 05:23] LABS: CHLORIDE 102 mmol/L (98-107)
[2018-09-05 05:28] LABS: ANION GAP 11 mmol/L (5-15); CREATININE 2.48 mg/dL (0.55-1.02)
[2018-09-05] MEDS: DULOXETINE 30 MG CAPSULE.DR PO SCH (08:10)
[2018-09-05] MEDS: AMIODARONE 200 MG TABLET PO SCH ×2 (08:10→21:24)
[2018-09-05] MEDS: FUROSEMIDE 40 MG/4 ML IV SCH ×2 (08:11→21:23)
[2018-09-05] MEDS: POTASSIUM CHLORIDE 10% 40 MEQ/30 ML UDC PO SCH ×2 (08:11→21:23)
[2018-09-05] MEDS: PANTOPRAZOLE 40 MG IV IV SCH (08:11)
[2018-09-05] MEDS: METOLAZONE 5 MG TABLET PO SCH (08:11)
[2018-09-05] MEDS: SODIUM CHLORIDE FLUSH 10ML SYR IVF SCH ×2 (08:12→21:24)
[2018-09-05] MEDS: HEPARIN 25,000 UNITS/500ML PMX 500 ML IV PRN (08:38)
[2018-09-05] MEDS ORDERED: INSULIN GLARGINE 100 UNITS/ML, PEN SQ-INSULIN SCH (09:00)
[2018-09-05] MEDS: FENTANYL PF 100 MCG/2ML IVPush PRN ×3 (09:07→18:08)
[2018-09-05] MEDS: DEXMEDETOMIDINE 1,000 MCG in SODIUM CHLORIDE 0.9% 240 ML IV PRN ×2 (14:22→23:51)
[2018-09-05] MEDS: ATORVASTATIN 80 MG TABLET NG SCH (21:24)
[2018-09-05] MEDS ORDERED: INSULIN LISPRO 100 UNITS/ML, PEN SQ-INSULIN SCH (22:00)
[2018-09-06] MEDS: FENTANYL PF 100 MCG/2ML IVPush PRN ×3 (00:48→10:06)
[2018-09-06] MEDS: PIPERACILLIN/TAZO 2.25 GM in SODIUM CHLORIDE 0.9% 50 ML IV SCH ×2 (01:47→08:26)
[2018-09-06] MEDS: ALBUTEROL/IPRATROPIUM 2.5MG/0.5MG, 3 ML INLINE SCH ×4 (02:09→15:09)
[2018-09-06] MEDS ORDERED: INSULIN LISPRO 100 UNITS/ML, PEN SQ-INSULIN SCH (04:00)
[2018-09-06 04:26] LABS: ANION GAP 11 mmol/L (5-15); CALCIUM 8.3 mg/dL (8.5-10.1); CHLORIDE 103 mmol/L (98-107); CREATININE 2.23 mg/dL (0.55-1.02); TRIGLYCERIDES 68 mg/dL (50-200)
[2018-09-06 04:34] LABS: BASOPHILS # (AUTO) 0.02 x10^3/uL (0-0.1); BASOPHILS % (AUTO) 0 % (0-1); EOSINOPHILS # (AUTO) 0.05 x10^3/uL (0-0.4); EOSINOPHILS % (AUTO) 1 % (1-7); LYMPHOCYTES # (AUTO) 0.81 x10^3/uL (1-3.4); LYMPHOCYTES % (AUTO) 9 % (22-44); MD NO; MEAN CORPUSCULAR HEMOGLOBIN 30.3 pg (27.0-34.8); MEAN CORPUSCULAR HGB CONC 32.9 g/dL (32.4-35.8); MEAN CORPUSCULAR VOLUME 92.1 fL (80-100); MEAN PLATELET VOLUME 9.9 fL (7.4-10.4); MONOCYTES # (AUTO) 1.12 x10^3/uL (0.2-0.8); MONOCYTES % (AUTO) 13 % (2-9); NEUTROPHILS # (AUTO) 6.53 x10^3/uL (1.8-6.8); NEUTROPHILS % (AUTO) 77 % (42-75); PLATELET COUNT 136 x10^3/uL (130-400); RED BLOOD COUNT 2.98 x10^6/uL (3.82-5.3); RED CELL DISTRIBUTION WIDTH 17.1 % (9.6-15.2)
[2018-09-06] MEDS: HEPARIN 25,000 UNITS/500ML PMX 500 ML IV PRN (06:43)
[2018-09-06] MEDS: DEXMEDETOMIDINE 1,000 MCG in SODIUM CHLORIDE 0.9% 240 ML IV PRN (08:13)
[2018-09-06] MEDS: POTASSIUM CHLORIDE 10% 40 MEQ/30 ML UDC PO SCH (08:27)
[2018-09-06] MEDS: FUROSEMIDE 40 MG/4 ML IV SCH ×3 (08:27→17:32)
[2018-09-06] MEDS: DULOXETINE 30 MG CAPSULE.DR PO SCH (08:27)
[2018-09-06] MEDS: PANTOPRAZOLE 40 MG IV IV SCH (08:27)
[2018-09-06] MEDS: AMIODARONE 200 MG TABLET PO SCH (08:27)
[2018-09-06] MEDS: SODIUM CHLORIDE FLUSH 10ML SYR IVF SCH (08:28)
[2018-09-06] MEDS: INSULIN LISPRO 100 UNITS/ML, PEN SQ-INSULIN SCH ×2 (08:52→12:30)
[2018-09-06] MEDS ORDERED: INSULIN GLARGINE 100 UNITS/ML, PEN SQ-INSULIN SCH (09:00)
[2018-09-06] MEDS ORDERED: LINEZOLID PMX 600MG/300ML 300 ML IV SCH (10:00)
[2018-09-06 10:20] LABS: ALBUMIN 2.6 g/dL (3.4-5.0)
[2018-09-06 10:26] LABS: TOTAL PROTEIN 5.1 g/dL (6.4-8.2)
[2018-09-06] MEDS ORDERED: MIDAZOLAM 1 MG/ML, 5ML ONE (10:32)
[2018-09-06] MEDS ORDERED: LIDOCAINE-MPF 1%, 5ML ONE (10:38)
[2018-09-06] MEDS ORDERED: MIDAZOLAM 1 MG/ML, 5ML IVPush ONE (11:00)
[2018-09-06] MEDS: PROPOFOL 100 ML IV PRN ×2 (11:25→17:50)
[2018-09-06] MEDS ORDERED: MEROPENEM 1 GM in SODIUM CHLORIDE 0.9% 100 ML IV SCH (12:00)
[2018-09-06] MEDS ORDERED: ALBUMIN HUMAN 5% 500 ML IV ONE (12:00)
[2018-09-06] MEDS ORDERED: QUETIAPINE 25MG TABLET PO SCH (12:30)
--- NOTE | 2018-09-06 13:14 | NUR ---
TF Recommendations updated: Nepro ON/OFF propofol goal 40 ml/hr + 1 packet beneprotein BID
[2018-09-06] MEDS ORDERED: NOREPINEPHRINE 1 MG/ML, 4ML ONE (15:26)
[2018-09-06] MEDS ORDERED: VASOPRESSIN 100 UNIT in SODIUM CHLORIDE 0.9% 495 ML IV PRN (16:00)
[2018-09-06] MEDS ORDERED: NOREPINEPHRINE 4 MG in SODIUM CHLORIDE 0.9% 246 ML IV PRN (16:00)
[2018-09-06 16:26] LABS: MEAN CORPUSCULAR HEMOGLOBIN 29.6 pg (27.0-34.8); MEAN CORPUSCULAR HGB CONC 32.3 g/dL (32.4-35.8); MEAN CORPUSCULAR VOLUME 91.7 fL (80-100); MEAN PLATELET VOLUME 8.9 fL (7.4-10.4); PLATELET COUNT 155 x10^3/uL (130-400); RED BLOOD COUNT 1.59 x10^6/uL (3.82-5.3); RED CELL DISTRIBUTION WIDTH 17.3 % (9.6-15.2)
[2018-09-06] MEDS ORDERED: PROTAMINE SULFATE 50 MG in SODIUM CHLORIDE 0.9% 50 ML IV ONE (16:30)
[2018-09-06 16:32] LABS: ALANINE AMINOTRANSFERASE 29 U/L (12-78); ALBUMIN 2.7 g/dL (3.4-5.0); ANION GAP 13 mmol/L (5-15); CALCIUM 7.3 mg/dL (8.5-10.1); CHLORIDE 105 mmol/L (98-107); CREATININE 2.58 mg/dL (0.55-1.02)
[2018-09-06 16:35] LABS: ALKALINE PHOSPHATASE 75 U/L (45-117); BILIRUBIN,TOTAL 0.6 mg/dL (0.2-1.0); TOTAL PROTEIN 4.8 g/dL (6.4-8.2)
[2018-09-06 16:47] LABS: BASOPHILS % (AUTO) 0 % (0-1); EOSINOPHILS # (AUTO) 0.01 x10^3/uL (0-0.4); EOSINOPHILS % (AUTO) 0 % (1-7); LYMPHOCYTES # (AUTO) 0.72 x10^3/uL (1-3.4); LYMPHOCYTES % (AUTO) 3 % (22-44); MD SCAN; MONOCYTES % (AUTO) 14 % (2-9); NEUTROPHILS # (AUTO) 17.66 x10^3/uL (1.8-6.8); NEUTROPHILS % (AUTO) 82 % (42-75)
[2018-09-06] MEDS ORDERED: CALCIUM CHLORIDE 10%, 10ML SYR ONE (16:52)
[2018-09-06 16:54] LABS: TROPONIN I 0.115 ng/mL (0.000-0.045)
[2018-09-06] MEDS ORDERED: CALCIUM CHLORIDE 13.6 MEQ in SODIUM CHLORIDE 0.9% 100 ML IV ONE (17:00)
[2018-09-06] MEDS ORDERED: CALCIUM CHLORIDE 10%, 10ML SYR IVPush ONE (17:00)
[2018-09-06 17:06] VITALS: BP 168/88
[2018-09-06] MEDS ORDERED: FUROSEMIDE 40 MG/4 ML IV STA (17:26)
[2018-09-06 17:34] VITALS: BP 160/72
[2018-09-06 17:45] VITALS: BP 162/72
[2018-09-06] MEDS ORDERED: PHYTONADIONE 10 MG in SODIUM CHLORIDE 0.9% 50 ML IV ONE (18:00)
[2018-09-06] MEDS ORDERED: ATROPINE OPHTH SOLN 1%, 2ML PO PRN (18:30)
[2018-09-06] MEDS ORDERED: morphine SULFATE 10 MG/ML, 1ML IV ONE (18:30)
[2018-09-06] MEDS ORDERED: LORazepam 2 MG/ML, 1ML IV PRN (18:30)
[2018-09-06] MEDS ORDERED: morphine SULFATE 10 MG/ML, 1ML IV PRN (18:30)
[2018-09-06] MEDS ORDERED: LORazepam 2 MG/ML, 1ML IV ONE (18:30)
== END 2018-09-06 22:12 | disposition expired | DRG 207 ==
LOC: ED 16:18 → 4EST 16:57 → ICU 08-31 14:35 → CCU 09-03 15:47
PROVIDERS: ADMIT Family Medicine; ATTEND Family Medicine
PROC: 0T9B70Z Drainage of Bladder with Drainage Device, Via Natural or Artificial Opening (ICD-10-PCS; 2018-08-26)
PROC: 5A1955Z Respiratory Ventilation, Greater than 96 Consecutive Hours (ICD-10-PCS; principal; 2018-09-01)
PROC: 0BH18EZ Insertion of Endotracheal Airway into Trachea, Via Natural or Artificial Opening Endoscopic (ICD-10-PCS; 2018-09-01)
PROC: 0W9B3ZZ Drainage of Left Pleural Cavity, Percutaneous Approach (ICD-10-PCS; 2018-09-06)
PROC: 30233L1 Transfusion of Nonautologous Fresh Plasma into Peripheral Vein, Percutaneous Approach (ICD-10-PCS; 2018-09-06)
PROC: 30233N1 Transfusion of Nonautologous Red Blood Cells into Peripheral Vein, Percutaneous Approach (ICD-10-PCS; 2018-09-06)
PROC: 30233R1 Transfusion of Nonautologous Platelets into Peripheral Vein, Percutaneous Approach (ICD-10-PCS; 2018-09-06)
DX: J96.22 Acute and chronic respiratory failure with hypercapnia (principal); N17.0 Acute kidney failure with tubular necrosis; I50.33 Acute on chronic diastolic (congestive) heart failure; G92 Toxic encephalopathy; J18.9 Pneumonia, unspecified organism; L03.115 Cellulitis of right lower limb; I13.0 Hypertensive heart and chronic kidney disease with heart failure and stage 1 through stage 4 chronic kidney disease, or unspecified chronic kidney disease; Z99.11 Dependence on respirator [ventilator] status; J44.0 Chronic obstructive pulmonary disease with (acute) lower respiratory infection; D62 Acute posthemorrhagic anemia; D68.69 Other thrombophilia; E87.2 Acidosis; J44.1 Chronic obstructive pulmonary disease with (acute) exacerbation; L97.909 Non-pressure chronic ulcer of unspecified part of unspecified lower leg with unspecified severity; J98.11 Atelectasis; L03.116 Cellulitis of left lower limb; J96.21 Acute and chronic respiratory failure with hypoxia; B95.2 Enterococcus as the cause of diseases classified elsewhere; E03.9 Hypothyroidism, unspecified; E11.22 Type 2 diabetes mellitus with diabetic chronic kidney disease; E66.9 Obesity, unspecified; N18.9 Chronic kidney disease, unspecified; K21.9 Gastro-esophageal reflux disease without esophagitis; M10.9 Gout, unspecified; I87.8 Other specified disorders of veins; I07.1 Rheumatic tricuspid insufficiency; G47.33 Obstructive sleep apnea (adult) (pediatric); R57.8 Other shock; I87.2 Venous insufficiency (chronic) (peripheral); I83.009 Varicose veins of unspecified lower extremity with ulcer of unspecified site; I48.91 Unspecified atrial fibrillation; E87.6 Hypokalemia; R74.8 Abnormal levels of other serum enzymes; R94.6 Abnormal results of thyroid function studies; W06.XXXA Fall from bed, initial encounter; F32.9 Major depressive disorder, single episode, unspecified; F41.9 Anxiety disorder, unspecified; G89.29 Other chronic pain; Z79.4 Long term (current) use of insulin; Z91.81 History of falling; Y92.003 Bedroom of unspecified non-institutional (private) residence as the place of occurrence of the external cause; Z99.81 Dependence on supplemental oxygen; Y93.89 Activity, other specified; Y99.8 Other external cause status
CPT/HCPCS: 32555; 36415; 36600; 84145; 99285; J7613; J7620; J7626; 70450; 71045; 76705; 76770; 80048; 80053; 80061; 80307; 81001; 82040; 82140; 82436; 82550; 82570; 82803; 82947; 82962; 83036; 83605; 83615; 83735; 83880; 84100; 84133; 84155; 84156; 84300; 84439; 84443; 84478; 84484; 85014; 85018; 85025; 85520; 85610; 86850; 86900; 86923; 87040; 87070; 87077; 87081; 87186; 87205; 93005; 93306; 93922; 93970; 94002; 94003; 94640; 95819; 96374; G0378; J0295; J1644; J1650; J1940; J2020; J2185; J2250; J2543; J2704; J2720; J3010; J3370; J7060; P9047; 92523-GN; C9113; J0282; J1630; J1815; J2060; J2270; J2920; J7030; J7040; J7050; J7512; P9016; P9017; P9035